=== PATIENT | female | born 1985 | race Caucasian/White ===

== ENCOUNTER 2018-09-22 02:04 | Inpatient (IN) | payer BC ==
[~2018-09-22] VITALS: Ht 175.3 cm; Wt 104.0 kg
[2018-09-22] MEDS ORDERED: D5%-LACTATED RINGERS 1,000 ML IV SCH (02:19)
[2018-09-22] MEDS ORDERED: OXYTOCIN 30U/ 0.9% NaCL 500ML 500 ML IV ONE (02:19)
[2018-09-22] MEDS ORDERED: LACTATED RINGERS 1,000 ML IV SCH ×3 (02:19→11:16)
[2018-09-22] MEDS ORDERED: FENTANYL/BUPIV./NS/PF 250 ML EPIDCONT SCH (02:20)
[2018-09-22] MEDS ORDERED: OXYTOCIN 30U/ 0.9% NaCL 500ML 500 ML ONE ×2 (02:23→18:13)
[2018-09-22] MEDS ORDERED: LIDOCAINE 1%, 20ML ONE (02:23)
[2018-09-22] MEDS ORDERED: NEWBORN KIT ONE (02:23)
[2018-09-22] MEDS ORDERED: MISOPROSTOL 200 MCG TABLET ONE (02:23)
[2018-09-22] MEDS ORDERED: FENTANYL PF 100 MCG/2ML IVPush PRN (02:30)
[2018-09-22] MEDS ORDERED: FENTANYL PF 100 MCG/2ML IV PRN (02:30)
[2018-09-22] MEDS ORDERED: ONDANSETRON 2MG/ML, 2ML IVPush PRN ×2 (02:30→11:30)
[2018-09-22] MEDS ORDERED: CALCIUM CARBONATE 500 MG TAB.CHEW PO PRN (02:30)
[2018-09-22] MEDS ORDERED: TERBUTALINE 1 MG/ML, 1ML IVPush PRN (02:30)
[2018-09-22] MEDS ORDERED: LACTATED RINGERS 1,000 ML IVBOLUS PRN ×2 (02:30→11:30)
[2018-09-22] MEDS ORDERED: FENTANYL PF 500 MCG, BUPIVACAINE/PF 0.5%, 30ML 62.5 ML in SODIUM CHLORIDE 0.9% 177.5 ML EPIDCONT SCH ×2 (02:30→11:16)
[2018-09-22] MEDS ORDERED: EPHEDRINE 50 MG/ML, 1ML IVPush PRN ×2 (02:30→11:30)
[2018-09-22 02:52] VITALS: BP 138/76
[2018-09-22 03:24] LABS: BASOPHILS # (AUTO) 0.03 x10^3/uL (0-0.1); BASOPHILS % (AUTO) 0 % (0-1); EOSINOPHILS # (AUTO) 0.11 x10^3/uL (0-0.4); EOSINOPHILS % (AUTO) 1 % (1-7); LYMPHOCYTES # (AUTO) 2.19 x10^3/uL (1-3.4); LYMPHOCYTES % (AUTO) 16 % (22-44); MD NO; MEAN CORPUSCULAR HEMOGLOBIN 29.4 pg (27.0-34.8); MEAN CORPUSCULAR VOLUME 89.1 fL (80-100); MEAN PLATELET VOLUME 8.7 fL (7.4-10.4); MONOCYTES # (AUTO) 1.08 x10^3/uL (0.2-0.8); MONOCYTES % (AUTO) 8 % (2-9); NEUTROPHILS # (AUTO) 10.41 x10^3/uL (1.8-6.8); NEUTROPHILS % (AUTO) 75 % (42-75); PLATELET COUNT 240 x10^3/uL (130-400); RED BLOOD COUNT 4.49 x10^6/uL (3.82-5.3); RED CELL DISTRIBUTION WIDTH 13.8 % (9.6-15.2)
[2018-09-22] MEDS ORDERED: OXYTOCIN 30U/ 0.9% NaCL 500ML 500 ML IV PRN (05:01)
[2018-09-22] MEDS ORDERED: FENTANYL/BUPIV./NS/PF 250 ML EPIDCONT ONE (09:45)
[2018-09-22] MEDS ORDERED: BUPIVACAINE 0.25% ONE (10:37)
[2018-09-22] MEDS ORDERED: NALOXONE 0.4 MG/ML, 1ML IVPush PRN (11:30)
[2018-09-22] MEDS ORDERED: DIPHENHYDRAMINE 50 MG/ML, 1ML IVPush PRN (11:30)
[2018-09-22] MEDS: OXYTOCIN 30U/ 0.9% NaCL 500ML 500 ML IV SCH (17:49)
[2018-09-22] MEDS ORDERED: OXYcodone/APAP 5/325MG TABLET PO PRN (18:00)
[2018-09-22] MEDS ORDERED: MISOPROSTOL 200 MCG TABLET PR PRN (18:00)
[2018-09-22] MEDS ORDERED: ACETAMINOPHEN 325 MG TABLET PO PRN ×2 (18:00)
[2018-09-22] MEDS ORDERED: IBUPROFEN 600 MG TABLET ONE (19:04)
[2018-09-22] MEDS ORDERED: OXYcodone/APAP 5/325MG TABLET ONE (19:05)
[2018-09-22] MEDS: IBUPROFEN 600 MG TABLET PO PRN (19:08)
[2018-09-22] MEDS: OXYcodone/APAP 5/325MG TABLET PO PRN (19:08)
[2018-09-22 20:15] VITALS: BP 120/72
[2018-09-23 00:30] VITALS: BP 113/71
[2018-09-23] MEDS: OXYcodone/APAP 5/325MG TABLET PO PRN ×5 (00:37→19:33)
[2018-09-23 01:23] LABS: BASOPHILS # (AUTO) 0.05 x10^3/uL (0-0.1); BASOPHILS % (AUTO) 0 % (0-1); EOSINOPHILS # (AUTO) 0.04 x10^3/uL (0-0.4); EOSINOPHILS % (AUTO) 0 % (1-7); LYMPHOCYTES # (AUTO) 2.15 x10^3/uL (1-3.4); LYMPHOCYTES % (AUTO) 14 % (22-44); MD NO; MEAN CORPUSCULAR HEMOGLOBIN 30.7 pg (27.0-34.8); MEAN CORPUSCULAR VOLUME 90.2 fL (80-100); MEAN PLATELET VOLUME 8.8 fL (7.4-10.4); MONOCYTES # (AUTO) 0.74 x10^3/uL (0.2-0.8); MONOCYTES % (AUTO) 5 % (2-9); NEUTROPHILS # (AUTO) 12.09 x10^3/uL (1.8-6.8); NEUTROPHILS % (AUTO) 80 % (42-75); PLATELET COUNT 203 x10^3/uL (130-400); RED BLOOD COUNT 3.89 x10^6/uL (3.82-5.3); RED CELL DISTRIBUTION WIDTH 13.9 % (9.6-15.2)
[2018-09-23] MEDS: OXYTOCIN 30U/ 0.9% NaCL 500ML 500 ML IV SCH ×3 (03:49→23:49)
[2018-09-23 04:00] VITALS: BP 125/73
[2018-09-23] MEDS: IBUPROFEN 600 MG TABLET PO PRN ×2 (05:34→15:08)
[2018-09-23 07:12] VITALS: BP 116/72
[2018-09-23] MEDS: PRENATAL VIT/IRON/FA 1 EACH TABLET PO SCH (09:55)
[2018-09-23] MEDS: DOCUSATE 100 MG CAPSULE PO PRN (09:55)
[2018-09-23 13:20] VITALS: BP 131/84
[2018-09-23 20:00] VITALS: BP 125/81
[2018-09-24] MEDS: IBUPROFEN 600 MG TABLET PO PRN ×3 (00:15→11:49)
[2018-09-24] MEDS: OXYcodone/APAP 5/325MG TABLET PO PRN ×3 (00:16→11:49)
[2018-09-24 07:00] VITALS: BP 120/79
[2018-09-24] MEDS ORDERED: IBUP-1222 PO (10:53)
[2018-09-24] MEDS ORDERED: DOCU-131 PO (10:53)
[2018-09-24] MEDS ORDERED: OXYC-302 PO (10:53)
[2018-09-24] MEDS: DOCUSATE 100 MG CAPSULE PO PRN (11:49)
[2018-09-24] MEDS: PRENATAL VIT/IRON/FA 1 EACH TABLET PO SCH (11:49)
== END 2018-09-24 14:44 | disposition home or self-care (01) | DRG 807 ==
LOC: LDOP 02:04 → LDIP 02:29 → 2NW 20:08
PROVIDERS: ADMIT Obstetrics & Gynecology; ATTEND Obstetrics & Gynecology
PROC: 10E0XZZ Delivery of Products of Conception, External Approach (ICD-10-PCS; principal; 2018-09-23)
PROC: 0KQM0ZZ Repair Perineum Muscle, Open Approach (ICD-10-PCS; 2018-09-23)
PROC: 3E033VJ Introduction of Other Hormone into Peripheral Vein, Percutaneous Approach (ICD-10-PCS; 2018-09-23)
PROC: 0U7C7ZZ Dilation of Cervix, Via Natural or Artificial Opening (ICD-10-PCS; 2018-09-23)
PROC: 10H07YZ Insertion of Other Device into Products of Conception, Via Natural or Artificial Opening (ICD-10-PCS; 2018-09-23)
PROC: 3E0R3BZ Introduction of Anesthetic Agent into Spinal Canal, Percutaneous Approach (ICD-10-PCS; 2018-09-23)
PROC: 00HU33Z Insertion of Infusion Device into Spinal Canal, Percutaneous Approach (ICD-10-PCS; 2018-09-23)
DX: O42.02 Full-term premature rupture of membranes, onset of labor within 24 hours of rupture (principal); Z37.0 Single live birth; O99.62 Diseases of the digestive system complicating childbirth; K21.9 Gastro-esophageal reflux disease without esophagitis; Z3A.38 38 weeks gestation of pregnancy; O70.1 Second degree perineal laceration during delivery
CPT/HCPCS: 36415; S0020; 85025; 86850; 86900; G0378; J3010; J2590; J7050; J7120

== ENCOUNTER 2020-05-15 06:12 | Inpatient (IN) | payer BC ==
[~2020-05-15] VITALS: Ht 177.8 cm; Wt 97.7 kg
[~2020-05-15 06:12] MED LIST: DOCU-131 PO; IBUP-1222 PO; OXYC1TAB14 PO
[2020-05-15] MEDS ORDERED: LIDOCAINE 1%, 20ML ONE (06:35)
[2020-05-15] MEDS ORDERED: MISOPROSTOL 200 MCG TABLET ONE (06:36)
[2020-05-15] MEDS ORDERED: OXYTOCIN 30U/ 0.9% NaCL 500ML 500 ML ONE (06:36)
[2020-05-15] MEDS ORDERED: D5%-LACTATED RINGERS 1,000 ML IV SCH (07:00)
[2020-05-15] MEDS ORDERED: LACTATED RINGERS 1,000 ML IV SCH ×2 (07:00→11:00)
[2020-05-15] MEDS ORDERED: PLEASE ENTER HEIGHT AND WEIGHT MC SCH ×2 (07:00→08:30)
[2020-05-15] MEDS ORDERED: ONDANSETRON 2MG/ML, 2ML IVPush PRN ×2 (07:00→11:00)
[2020-05-15] MEDS ORDERED: FENTANYL PF 100 MCG/2ML IVPush PRN (07:00)
[2020-05-15] MEDS ORDERED: TERBUTALINE 1 MG/ML, 1ML IVPush PRN (07:00)
[2020-05-15] MEDS ORDERED: TERBUTALINE 1 MG/ML, 1ML SQ PRN (07:00)
[2020-05-15] MEDS ORDERED: OXYTOCIN 30U/ 0.9% NaCL 500ML 500 ML IV ONE (07:00)
[2020-05-15] MEDS ORDERED: OXYTOCIN 30U/ 0.9% NaCL 500ML 500 ML IV PRN (07:00)
[2020-05-15] MEDS ORDERED: CALCIUM CARBONATE 500 MG TAB.CHEW PO PRN ×2 (07:00→14:30)
[2020-05-15] MEDS ORDERED: FENTANYL PF 100 MCG/2ML IV PRN (07:00)
[2020-05-15 07:03] LABS: BASOPHILS % (AUTO) 1 % (0-1); EOSINOPHILS % (AUTO) 2 % (1-7); LYMPHOCYTES % (AUTO) 19 % (22-44); MEAN CORPUSCULAR HEMOGLOBIN 30.1 pg (27.0-34.8); MEAN CORPUSCULAR HGB CONC 33.9 g/dL (32.4-35.8); MEAN PLATELET VOLUME 8.8 fL (7.4-10.4); MONOCYTES % (AUTO) 9 % (2-9); NEUTROPHILS % (AUTO) 70 % (42-75); PLATELET COUNT 216 x10^3/uL (130-400); RED BLOOD COUNT 4.53 x10^6/uL (3.82-5.3); RED CELL DISTRIBUTION WIDTH 13.8 % (9.6-15.2)
[2020-05-15 07:04] LABS: MD NO
[2020-05-15 08:20] VITALS: BP 122/73
[2020-05-15] MEDS ORDERED: BUPIVACAINE 0.25% ONE (10:19)
[2020-05-15] MEDS ORDERED: FENTANYL/BUPIV./NS/PF 250 ML EPIDCONT ONE (10:19)
[2020-05-15] MEDS ORDERED: LACTATED RINGERS 1,000 ML IVBOLUS PRN (11:00)
[2020-05-15] MEDS ORDERED: NALOXONE 0.4 MG/ML, 1ML IVPush PRN (11:00)
[2020-05-15] MEDS ORDERED: DIPHENHYDRAMINE 50 MG/ML, 1ML IVPush PRN (11:00)
[2020-05-15] MEDS ORDERED: FENTANYL/BUPIV./NS/PF 250 ML EPIDCONT SCH (11:00)
[2020-05-15] MEDS ORDERED: EPHEDRINE 50 MG/ML, 1ML IVPush PRN (11:00)
[2020-05-15] MEDS ORDERED: PREN1TAB60 PO (12:37)
[2020-05-15] MEDS ORDERED: OMEP20TA62 PO (12:38)
[2020-05-15] MEDS ORDERED: ONDANSETRON 2MG/ML, 2ML IV PRN (14:30)
[2020-05-15] MEDS ORDERED: DOCUSATE 100 MG CAPSULE PO PRN (14:30)
[2020-05-15] MEDS ORDERED: BISACODYL 10 MG SUPP PR PRN (14:30)
[2020-05-15] MEDS ORDERED: ACETAMINOPHEN 325 MG TABLET PO PRN ×2 (14:30)
[2020-05-15] MEDS ORDERED: SIMETHICONE 80 MG CHEW TAB PO PRN (14:30)
[2020-05-15] MEDS: OXYTOCIN 30U/ 0.9% NaCL 500ML 500 ML IV SCH ×8 (14:30→23:06)
[2020-05-15] MEDS ORDERED: HYDROcodone/APAP 5/325 TABLET PO PRN ×2 (14:30)
[2020-05-15] MEDS ORDERED: MISOPROSTOL 200 MCG TABLET PR PRN (14:30)
[2020-05-15] MEDS: IBUPROFEN 600 MG TABLET PO PRN ×2 (14:45→21:33)
[2020-05-15] MEDS ORDERED: DEXTROSE 47%, 15GM GEL ONE (14:58)
[2020-05-15 16:30] VITALS: BP 107/69
[2020-05-15 21:33] LABS: BASOPHILS % (AUTO) 1 % (0-1); EOSINOPHILS % (AUTO) 2 % (1-7); LYMPHOCYTES % (AUTO) 19 % (22-44); MEAN CORPUSCULAR HEMOGLOBIN 30.2 pg (27.0-34.8); MEAN PLATELET VOLUME 8.4 fL (7.4-10.4); MONOCYTES % (AUTO) 7 % (2-9); NEUTROPHILS % (AUTO) 72 % (42-75); PLATELET COUNT 203 x10^3/uL (130-400); RED BLOOD COUNT 4.39 x10^6/uL (3.82-5.3); RED CELL DISTRIBUTION WIDTH 13.7 % (9.6-15.2)
[2020-05-15 21:35] VITALS: BP 115/76
[2020-05-15 21:35] LABS: MD NO
[2020-05-15 23:55] VITALS: BP 114/72
[2020-05-16] MEDS: OXYTOCIN 30U/ 0.9% NaCL 500ML 500 ML IV SCH ×10 (00:30→10:34)
[2020-05-16 05:10] VITALS: BP 117/78
[2020-05-16] MEDS: IBUPROFEN 600 MG TABLET PO PRN ×2 (05:25→12:26)
[2020-05-16 08:25] VITALS: BP 112/70
[2020-05-16] MEDS ORDERED: PRENATAL VIT/IRON/FA 1 EACH TABLET PO SCH (09:00)
[2020-05-16] MEDS ORDERED: DOCU-131 PO (16:13)
[2020-05-16] MEDS ORDERED: IBUP-1222 PO (16:14)
== END 2020-05-16 17:01 | disposition home or self-care (01) | DRG 807 ==
LOC: LDIP 06:12 → 2NW 16:29
PROVIDERS: ADMIT Obstetrics & Gynecology; ATTEND Obstetrics & Gynecology
PROC: 0HQ9XZZ Repair Perineum Skin, External Approach (ICD-10-PCS; principal; 2020-05-15)
PROC: 10E0XZZ Delivery of Products of Conception, External Approach (ICD-10-PCS; 2020-05-15)
PROC: 10907ZC Drainage of Amniotic Fluid, Therapeutic from Products of Conception, Via Natural or Artificial Opening (ICD-10-PCS; 2020-05-15)
PROC: 3E033VJ Introduction of Other Hormone into Peripheral Vein, Percutaneous Approach (ICD-10-PCS; 2020-05-15)
PROC: 3E0R3BZ Introduction of Anesthetic Agent into Spinal Canal, Percutaneous Approach (ICD-10-PCS; 2020-05-15)
PROC: 00HU33Z Insertion of Infusion Device into Spinal Canal, Percutaneous Approach (ICD-10-PCS; 2020-05-15)
DX: O70.0 First degree perineal laceration during delivery (principal); Z37.0 Single live birth; Z20.822 Contact with and (suspected) exposure to COVID-19; Z3A.39 39 weeks gestation of pregnancy; Z80.3 Family history of malignant neoplasm of breast; Z82.3 Family history of stroke; Z82.49 Family history of ischemic heart disease and other diseases of the circulatory system
CPT/HCPCS: 36415; 85025; 86592; 86850; 86900; 87635; G0378; J2590; J7120